=== PATIENT | female | born 1935 | race Two or more races ===

== ENCOUNTER 2018-06-29 15:18 | Emergency (ER) | payer OTHER ==
[~2018-06-29] VITALS: Ht 157.5 cm; Wt 90.7 kg
[~2018-06-29 15:18] MED LIST: ALPR0.5T7 PO; GLIP-115; METF-370 OR; TRIATAB3 OR
[2018-06-29 15:26] VITALS: BP 136/81
[2018-06-29] MEDS ORDERED: traMADol HCL 50 MG TAB PO ONE (16:45)
== END 2018-06-29 17:08 | disposition home or self-care (01) ==
LOC: EDBD 15:18 → ER 15:18
DX: S02.2XXA Fracture of nasal bones, initial encounter for closed fracture (principal); S80.01XA Contusion of right knee, initial encounter; E11.9 Type 2 diabetes mellitus without complications; E78.5 Hyperlipidemia, unspecified; I10 Essential (primary) hypertension; Z98.51 Tubal ligation status; Z79.84 Long term (current) use of oral hypoglycemic drugs; Z79.899 Other long term (current) drug therapy; W01.0XXA Fall on same level from slipping, tripping and stumbling without subsequent striking against object, initial encounter; Y93.89 Activity, other specified; Y99.8 Other external cause status; Y92.89 Other specified places as the place of occurrence of the external cause
CPT/HCPCS: 70450; 70486; 73562

== ENCOUNTER 2019-02-08 07:15 | Inpatient (IN) | payer OTHER | END 2019-02-09 16:00 | disposition home or self-care (01) | LOC: ER 07:15 → TELE 07:16 → TELE-CENTR 12:08 | DX: I24.9 Acute ischemic heart disease, unspecified (principal); E11.9 Type 2 diabetes mellitus without complications; I10 Essential (primary) hypertension; E78.5 Hyperlipidemia, unspecified; I70.90 Unspecified atherosclerosis; I70.0 Atherosclerosis of aorta ==

== ENCOUNTER 2021-07-28 16:54 | Emergency (ER) | payer MEDICARE, OTHER ==
[~2021-07-28] VITALS: Ht 160 cm; Wt 99.8 kg
[~2021-07-28 16:54] MED LIST changes: +ATOR20TA PO; -GLIP-115; +GLIP5TAB12; +OMEP20TA PO
[2021-07-28 18:47] LABS: Basophils # (auto) 0 10 ^3/uL (0-0.2); Basophils % (auto) 0.4 % (0.0-2.0); Eosinophils # (auto) 0.1 10 ^3/uL (0-0.8); Eosinophils % (auto) 2.8 % (0.0-7.0); Hematocrit 39.3 % (36.0-46.0); Hemoglobin 13.4 g/dL (12.2-16.2); Lymphocytes # (auto) 0.8 10 ^3/uL (0.4-5.4); Lymphocytes % (auto) 15.9 % (10.0-50.0); Mean Corpuscular Hemoglobin 28.9 pg (28.0-32.0); Mean Corpuscular Volume 85.1 fL (80.0-100.0); Monocytes # (auto) 0.4 10 ^3/uL (0-1.3); Monocytes % (auto) 7.1 % (0.0-12.0); Neutrophils # (auto) 3.8 10 ^3/uL (1.6-8.6); Neutrophils % (auto) 73.8 % (37.0-80.0); Red Blood Cells 4.62 10^6/uL (4.0-5.20); Red Cell Distribution Width 13.6 % (11.8-14.3); White Blood Cell 5.1 10^3/uL (4.4-10.8)
[2021-07-28 18:54] LABS: Albumin 3.6 g/dL (3.4-5.0); Calcium 8.6 mg/dL (8.5-10.1); Magnesium 2.9 mg/dL (1.6-2.6); Potassium 3.8 mmol/L (3.5-5.1)
[2021-07-28 19:04] LABS: BUN/Creatinine Ratio 25.5; Bilirubin, Total 0.5 mg/dL (0.2-1.0); Total Protein 6.8 g/dL (6.4-8.2)
[2021-07-29 03:00] VITALS: BP 156/72
== END 2021-07-29 03:32 | disposition home or self-care (01) ==
LOC: EDBD 16:54 → ER 16:54
DX: R07.89 Other chest pain (principal); E11.9 Type 2 diabetes mellitus without complications; E78.5 Hyperlipidemia, unspecified; I10 Essential (primary) hypertension; Z98.51 Tubal ligation status
CPT/HCPCS: 36415; 71045; 80053; 83735; 83880; 84484; 85025; 93005

== ENCOUNTER 2022-01-20 15:08 | Emergency (ER) | payer OTHER ==
[~2022-01-20] VITALS: Ht 165.1 cm; Wt 86.2 kg
[2022-01-20] MEDS ORDERED: TETRACAINE HCL 0.5% OPTH(EYE) SOLN 4ML RIGHTEYE ONE (21:30)
[2022-01-20] MEDS ORDERED: FLUORESCEIN SOD OPTH TEST STRIP RIGHTEYE ONE (21:30)
[2022-01-20 22:45] VITALS: BP 145/64
== END 2022-01-20 22:55 | disposition home or self-care (01) ==
LOC: ER 15:08
DX: H57.11 Ocular pain, right eye (principal)

== ENCOUNTER 2022-05-20 22:11 | Inpatient (IN) | payer OTHER ==
[~2022-05-20] VITALS: Ht 165.1 cm; Wt 99.5 kg
[2022-05-20] MEDS ORDERED: PANTOPRAZOLE 40mg/50ML NS AE 50 ML IV ONE (22:30)
[2022-05-20] MEDS ORDERED: PANTOPRAZOLE 80 MG in SODIUM CHL 0.9% 100 ML IV ONE (22:30)
[2022-05-20] MEDS ORDERED: IOHEXOL 350 MG/ML 100ML IJ ONE (22:36)
[2022-05-20 23:16] LABS: Basophils # (auto) 0 10 ^3/uL (0-0.2); Basophils % (auto) 0.1 % (0.0-2.0); Eosinophils # (auto) 0.1 10 ^3/uL (0-0.8); Eosinophils % (auto) 0.5 % (0.0-7.0); Hematocrit 41.2 % (36.0-46.0); Hemoglobin 14.2 g/dL (12.2-16.2); Lymphocytes # (auto) 0.3 10 ^3/uL (0.4-5.4); Lymphocytes % (auto) 2.3 % (10.0-50.0); Mean Corpuscular Hemoglobin 29.3 pg (28.0-32.0); Mean Corpuscular Hgb Conc. 34.5 g/dL (32.0-36.0); Mean Corpuscular Volume 85.1 fL (80.0-100.0); Monocytes # (auto) 0.9 10 ^3/uL (0-1.3); Neutrophils # (auto) 11.8 10 ^3/uL (1.6-8.6); Neutrophils % (auto) 90.1 % (37.0-80.0); Red Blood Cells 4.85 10^6/uL (4.0-5.20); White Blood Cell 13.1 10^3/uL (4.4-10.8)
[2022-05-20] MEDS ORDERED: PANTOPRAZOLE 40 MG/10 ML VIAL INJ IV ONE (23:28)
[2022-05-20 23:36] LABS: Albumin 3.8 g/dL (3.4-5.0); Calcium 8.9 mg/dL (8.5-10.1)
[2022-05-20 23:38] LABS: BUN/Creatinine Ratio 30.5
[2022-05-20 23:39] LABS: INR 0.97 (0.9-1.15)
[2022-05-20 23:41] LABS: Total Protein 6.3 g/dL (6.4-8.2)
[2022-05-21] MEDS ORDERED: cefTRIAXone 1GM/50ML D5W 50 ML IV ONE (00:30)
[2022-05-21] MEDS ORDERED: ACETAMINOPHEN 325 MG TAB PO PRN (02:45)
[2022-05-21] MEDS ORDERED: DEXTROSE (50%) 50ML SYRG IV PRN (02:45)
[2022-05-21] MEDS ORDERED: ONDANSETRON HCL 4 MG/2 ML VIAL IV PRN (02:45)
[2022-05-21] MEDS ORDERED: HYDROcodone-ACET 5/325MG TAB PO PRN (02:45)
[2022-05-21] MEDS ORDERED: DOCUSATE SOD 100 MG CAP PO PRN (02:45)
[2022-05-21] MEDS ORDERED: HYDROmorphone HCL 2 MG/ML VL/or syr IV ONE (04:00)
[2022-05-21] MEDS: SODIUM CHLORIDE 0.9% 1,000 ML IV SCH ×3 (04:06→19:28)
[2022-05-21] MEDS ORDERED: MORPHINE SULFATE INJ 2 MG/ml SYRG IV PRN (04:15)
[2022-05-21] MEDS ORDERED: NITROGLYCERIN 0.4 MG SL TAB SL PRN (04:15)
[2022-05-21 06:14] LABS: Basophils # (auto) 0 10 ^3/uL (0-0.2); Basophils % (auto) 0.3 % (0.0-2.0); Eosinophils # (auto) 0 10 ^3/uL (0-0.8); Eosinophils % (auto) 0.1 % (0.0-7.0); Hematocrit 34.4 % (36.0-46.0); Hemoglobin 12.1 g/dL (12.2-16.2); Lymphocytes # (auto) 0.5 10 ^3/uL (0.4-5.4); Lymphocytes % (auto) 5.2 % (10.0-50.0); Mean Corpuscular Hemoglobin 29.8 pg (28.0-32.0); Mean Corpuscular Hgb Conc. 35.3 g/dL (32.0-36.0); Mean Corpuscular Volume 84.6 fL (80.0-100.0); Monocytes # (auto) 0.7 10 ^3/uL (0-1.3); Monocytes % (auto) 7.4 % (0.0-12.0); Neutrophils # (auto) 8.1 10 ^3/uL (1.6-8.6); Nucleated Red Blood Cells % 0.1 %; Red Blood Cells 4.06 10^6/uL (4.0-5.20); Red Cell Distribution Width 13.3 % (11.8-14.3); White Blood Cell 9.3 10^3/uL (4.4-10.8)
[2022-05-21] MEDS: ACCU-CHEK COMFORT CURVE STRIP VI SCH ×4 (06:24→22:50)
[2022-05-21] MEDS: InsuLIN REG 1unit/0.01ml Soln (100units/ml) SC SCH ×3 (06:31→17:00)
[2022-05-21 06:33] LABS: Potassium 3.7 mmol/L (3.5-5.1)
[2022-05-21 06:42] LABS: BUN/Creatinine Ratio 25.7; Calcium 8.8 mg/dL (8.5-10.1)
[2022-05-21 06:57] LABS: Bilirubin, Total 0.7 mg/dL (0.2-1.0); Total Protein 5.6 g/dL (6.4-8.2)
[2022-05-21] MEDS: PANTOPRAZOLE 40 MG/10 ML VIAL INJ IV SCH ×2 (10:12→22:41)
[2022-05-21] MEDS: ASPirin 81 mg TAB PO SCH (10:12)
[2022-05-21] MEDS ORDERED: diphenhdrAMINE HCL 50 MG/1 ML VL ONE (14:31)
[2022-05-21] MEDS ORDERED: LIDOCAINE VISCOUS 2% 15ML UD ONE (14:31)
[2022-05-21] MEDS: fentaNYL CITRATE 100 MCG/2 ML VL ONE ×2 (15:39→15:42)
[2022-05-21] MEDS: MIDAZOLAM HCL 5 MG/ML-1ML VIAL ONE ×2 (15:39→15:42)
[2022-05-21] MEDS: SUCRALFATE 1 GM/10 ML ORAL SUSP PO SCH (17:00)
[2022-05-21] MEDS ORDERED: AMLO-483 PO (18:06)
[2022-05-21] MEDS ORDERED: PANT40TA57 PO (18:06)
[2022-05-21] MEDS ORDERED: HYDRX10T PO (18:06)
[2022-05-21] MEDS ORDERED: cefTRIAXone 1GM/50ML D5W 50 ML IV SCH (21:00)
[2022-05-21 22:00] VITALS: BP 134/64
[2022-05-21] MEDS ORDERED: ATORVASTATIN 20 MG TAB PO SCH (22:00)
[2022-05-21] MEDS ORDERED: InsuLIN REG 1unit/0.01ml Soln (100units/ml) SC SCH (22:00)
[2022-05-22 03:54] LABS: Urine Bacteria NONE SEEN /hpf (None Seen); Urine Blood Negative /uL (Negative); Urine Specific Gravity 1.009 (1.001-1.035); Urine WBC 6 /hpf (0 - 5)
[2022-05-22 05:00] VITALS: BP 123/72
[2022-05-22 05:13] LABS: Basophils # (auto) 0 10 ^3/uL (0-0.2); Basophils % (auto) 0.2 % (0.0-2.0); Eosinophils # (auto) 0.1 10 ^3/uL (0-0.8); Eosinophils % (auto) 0.7 % (0.0-7.0); Hemoglobin 12.5 g/dL (12.2-16.2); Lymphocytes # (auto) 0.8 10 ^3/uL (0.4-5.4); Lymphocytes % (auto) 11.1 % (10.0-50.0); Mean Corpuscular Hgb Conc. 34.9 g/dL (32.0-36.0); Monocytes # (auto) 0.5 10 ^3/uL (0-1.3); Monocytes % (auto) 7.9 % (0.0-12.0); Neutrophils # (auto) 5.5 10 ^3/uL (1.6-8.6); Neutrophils % (auto) 80.1 % (37.0-80.0); Red Blood Cells 4.18 10^6/uL (4.0-5.20); Red Cell Distribution Width 13.7 % (11.8-14.3); White Blood Cell 6.9 10^3/uL (4.4-10.8)
[2022-05-22 05:59] LABS: BUN/Creatinine Ratio 19.6; Bilirubin, Total 0.9 mg/dL (0.2-1.0); Calcium 8.5 mg/dL (8.5-10.1); Total Protein 5.4 g/dL (6.4-8.2)
[2022-05-22] MEDS: InsuLIN REG 1unit/0.01ml Soln (100units/ml) SC SCH ×2 (07:00→11:30)
[2022-05-22] MEDS: ACCU-CHEK COMFORT CURVE STRIP VI SCH ×2 (07:05→11:30)
[2022-05-22] MEDS: SUCRALFATE 1 GM/10 ML ORAL SUSP PO SCH (07:05)
[2022-05-22 08:30] VITALS: BP 136/74
[2022-05-22] MEDS: PANTOPRAZOLE 40 MG/10 ML VIAL INJ IV SCH (08:52)
[2022-05-22] MEDS: ASPirin 81 mg TAB PO SCH (08:52)
[2022-05-22] MEDS ORDERED: PANT40TA2 PO (12:04)
[2022-05-22] MEDS ORDERED: SUCR1SUS10 PO (12:04)
[2022-05-22] MEDS: SODIUM CHLORIDE 0.9% 1,000 ML IV SCH (12:05)
[2022-05-22 12:37] VITALS: BP 143/74
[2022-05-22 13:05] VITALS: BP 143/74
== END 2022-05-22 13:24 | disposition home or self-care (01) | DRG 379 ==
LOC: EDUNIT# 22:11 → EDBD 22:11 → ER 22:11 → TELE 05-21 04:09 → TELE-WESTW 05-21 17:18
PROVIDERS: ADMIT Nurse Practitioner Family; ATTEND Internal Medicine Geriatric Medicine
PROC: 0DB78ZX Excision of Stomach, Pylorus, Via Natural or Artificial Opening Endoscopic, Diagnostic (ICD-10-PCS; principal; 2022-05-21 15:35)
DX: K29.71 Gastritis, unspecified, with bleeding (principal); D72.829 Elevated white blood cell count, unspecified; E11.65 Type 2 diabetes mellitus with hyperglycemia; Z20.822 Contact with and (suspected) exposure to COVID-19; E78.00 Pure hypercholesterolemia, unspecified; I10 Essential (primary) hypertension; K57.30 Diverticulosis of large intestine without perforation or abscess without bleeding; E78.5 Hyperlipidemia, unspecified; K21.9 Gastro-esophageal reflux disease without esophagitis; K44.9 Diaphragmatic hernia without obstruction or gangrene; Z79.899 Other long term (current) drug therapy
CPT/HCPCS: 36415; 43239; 74177; 80053; 81001; 82962; 84484; 85025; 85610; 87426; 93306; 96365; 96367; 96375; C9113; G0378; J0696; J1815; J2250

== ENCOUNTER 2023-08-15 11:06 | Emergency (ER) | payer OTHER ==
[~2023-08-15] VITALS: Ht 162.6 cm; Wt 63.0 kg
[~2023-08-15 11:06] MED LIST changes: +AMLO1TAB21 PO; +ASPI-325 PO; -GLIP5TAB12; +LISI10TA34 PO; -OMEP20TA PO; +PANT40TA2 PO; -TRIATAB3 OR
[2023-08-15 16:17] VITALS: BP 130/65; TEMP 97.9
[2023-08-15] MEDS ORDERED: CEPH250C PO (16:20)
[2023-08-15 16:30] VITALS: PULSE 82; RESP 18; O2SAT 96
== END 2023-08-15 16:34 | disposition home or self-care (01) ==
LOC: ER 11:06
DX: E11.69 Type 2 diabetes mellitus with other specified complication (principal); N39.0 Urinary tract infection, site not specified; R51.9 Headache, unspecified; E78.5 Hyperlipidemia, unspecified; I10 Essential (primary) hypertension; Z86.73 Personal history of transient ischemic attack (TIA), and cerebral infarction without residual deficits; Z98.51 Tubal ligation status
CPT/HCPCS: 70450; 82962